=== PATIENT | female | born 1950 | race Caucasian/White ===

== ENCOUNTER 2021-07-18 18:01 | Emergency (ER) | payer MEDICARE, MEDICAID ==
[~2021-07-18] VITALS: Ht 160 cm; Wt 77.2 kg
--- NOTE | 2021-07-18 18:24 | PHYS DOC ---
General Adult EDM: Chief Complaint: HYPERTENSION HPI: HPI: Patient is a 70 year old female who presents with states she is just been feeling unwell with headache and dizziness when her blood pressure goes up. She states that she took her blood pressure today and it was in the 170s over 100s. She states that she has been very anxious and stressed lately with problems with one of her children. Patient is on lisinopril blood pressure medication. She states she has also been having left arm pain that goes from the shoulder and all the way down the arm since [place]. She denies fever, cough, abdominal pain, nausea, vomiting, diarrhea, numbness or tingling, focal weakness, vision change, syncope, head injury, chest pain, shortness of air, swelling of extremities. Denies any pain right now. Patient has a history of bipolar, anxiety, hypertension. She is fully vaccinated for COVID. (RAMÓN VARGSA CAR RENTAL MANAGER) Review of Systems: Review of Systems: Constitutional: Denies fever or chills. [] Eyes: Denies change in visual acuity. [] HENT: Denies nasal congestion or sore throat. [] Respiratory: Denies cough or shortness of breath. [] Cardiovascular: Denies chest pain or edema. + High blood pressure [] GI: Denies abdominal pain, nausea, vomiting, bloody stools or diarrhea. [] : Denies dysuria. [] Musculoskeletal: Denies back pain or joint pain. [] Integument: Denies rash. [] Neurologic: + headache, + dizziness, denies focal weakness or sensory changes. [] Endocrine: Denies polyuria or polydipsia. [] Lymphatic: Denies swollen glands. [] Psychiatric: Denies depression or anxiety. [] (RAMÓN VARGAS CAR RENTAL MANAGER) Heart Score: C/O Chest Pain: No HEART Score for Chest Pain: HEART Score for Chest Pain Response (Comments) Value History Slighlty/Non-Suspicious 0 ECG Nonspecific Repolarizatio 1 Age > 65 2 Risk Factors 1 or 2 Risk Factors 1 Troponin < Normal Limit 0 Total 4 Risk Factors: Risk Factors: DM, Current or recent (<one month) smoker, HTN, HLP, family history of CAD, obesity. Risk Scores: Score 0 - 3: 2.5% MACE over next 6 weeks - Discharge Home Score 4 - 6: 20.3% MACE over next 6 weeks - Admit for Clinical Observation Score 7 - 10: 72.7% MACE over next 6 weeks - Early Invasive Strategies (RAMÓN VARGAS APRN) Physical Exam: PE: Constitutional: Well developed, well nourished, no acute distress, non-toxic appearance. [] HENT: Normocephalic, atraumatic, bilateral external ears normal, oropharynx moist, no oral exudates, nose normal. [] Eyes: PERRLA, EOMI, conjunctiva normal, no discharge. [] Neck: Normal range of motion, no tenderness, supple, no stridor. [] Cardiovascular:Heart rate regular rhythm, no murmur [] Lungs & Thorax: Bilateral upper breath sounds clear and lower diminished to auscultation [] Abdomen: Bowel sounds normal, soft, no tenderness, no masses, no pulsatile masses. [] Skin: Warm, dry, no erythema, no rash. [] Back: No tenderness, no CVA tenderness. [] Extremities: No tenderness, no cyanosis, no clubbing, ROM intact, no edema. [] Neurologic: Alert and oriented X 3, normal motor function, normal sensory function, no focal deficits noted. [] Psychologic: Affect normal, judgement normal, mood normal. [] (RAMÓN VARGAS APRN) EKG: EK AND READ BY DR PEREZ SINUS RHYTHM WITH ATRIAL PREMATURE COMPLEXES, NO STEMI [address] PEREZ SINUS RHYTHM BUT NO STEMI (RAMÓN VARGAS APRN) Radiology/Procedures: Radiology/Procedures: [] Impression: [facility] [address] [place], [place] [id number] IMAGING REPORT Signed PATIENT: LILIAN ONEILLACCOUNT: [id number] : 1950 LOCATION: ER AGE: 70 SEX: M EXAM STATUS: REG ER ORD. PHYSICIAN: RAMÓN VARGAS APRN REASON: hypertension PROCEDURE: PORTABLE CHEST 1V Single view chest dated 07/18/2021 6:40 PM: COMPARISON: None Clinical Indication: Hypertension. Findings: Single upright portable exam of the chest was performed. Heart size and mediastinal contours are within normal limits. Lungs are clear. No consolidation or pleural effusion. No pneumothorax. IMPRESSION: No acute radiographic abnormality. Electronically signed by: Fran Mckeon MD (07/18/2021 6:40 PM) [facility] DICTATED and SIGNED BY: FRAN MCKEON MD DATE: 07/18/21 [id number] [facility] [address] [place] [address] IMAGING REPORT Signed PATIENT: LILIAN ONEILLACCOUNT: [id number] : 1950 LOCATION: ER AGE: 70 SEX: M EXAM STATUS: REG ER ORD. PHYSICIAN: RAMÓN VARGAS APRN REASON: headache, htn PROCEDURE: CT HEAD WO CONTRAST PQRS Compliance Statement: One or more of the following individualized dose reduction techniques were utilized for this examination: 1. Automated exposure control 2. Adjustment of the mA and/or kV according to patient size 3. Use of iterative reconstruction technique CT HEAD WITHOUT CONTRAST History: Reason: headache, htn : Comparison: None. Technique: Axial images are obtained of the head from the skull base through the vertex without IV contrast. Findings: No mass-effect, midline shift, extra-axial fluid collection, hemorrhage, or obvious acute infarction is identified. Basilar cisterns are patent. The ventricles and sulci are normal for patient age. There is mild periventricular white matter hypoattenuation. This is a nonspecific finding but is commonly due to chronic small vessel ischemic disease. Bone windows demonstrate no acute calvarial abnormality. The visualized paranasal sinuses are clear. The left mastoid air cells are partially opacified superiorly. IMPRESSION: No acute intracranial abnormality. Electronically signed by: Kushal Patel MD (07/18/2021 7:03 PM) [facility] DICTATED and SIGNED BY: KUSHAL PATEL MD DATE: 07/18/21 [id number] 0 (RAMÓN VARGAS APRN) Course & Med Decision Making: Course & Med Decision Making Pertinent Labs and Imaging studies reviewed. (See chart for details) See HPI. Alert and oriented x4. Ambulatory with a steady gait. Skin pink warm and dry. Lungs are clear in upper lobes and diminished in lower lobes. No extremity edema. PERRLA. Patient is very anxious. Initial blood pressure is 170 over 80s. 185: After patient has relaxed in the room her blood pressure is no 144/77. Chest x-ray shows no acute findings. 2030: Patient is signed over to Dr Perez. [] (RAMÓN VARGAS APRN) Course & Med Decision Making Assumed care of patient at checkout. At checkout second troponin was pending. Second troponin is normal. Patient's test results and vitals while in the ED were fully reviewed and discussed with the patient. Patient is stable and at this time does not need admission to the hospital. We have discussed strict return precautions and the importance of following up with their Primary Care Physician. Patient stated understanding and was given an opportunity to ask any questions. Patient is in agreement with plan. (CONNOR PEREZ MD) Dragon Disclaimer: Dragon Disclaimer: This electronic medical record was generated, in whole or in part, using a voice recognition dictation system. (RAMÓN VARGAS APRN) Departure Departure Impression: Primary Impression: Hypertension Qualified Codes: I10 - Essential (primary) hypertension Disposition: HOME / SELF CARE / HOMELESS Condition: STABLE Patient Instructions: Hypertension Additional Instructions: Call your primary care physician in the morning to get a follow-up appointment. Drink plenty of fluids. Rest as much as possible. Try to keep your stress level and anxiety down as much as possible. Continue taking all your medicat ions as they are prescribed. If you begin having chest pain, severe headache, severe shortness of breath or continuous dizziness return emergency room. RAMÓN VARGAS APRN Jul 18, 2021 18:24 CONNOR PEREZ MD Jul 19, 2021 00:39
--- NOTE | 2021-07-18 18:43 | RAD ---
Single view chest dated 07/18/2021 6:40 PM: COMPARISON: None Clinical Indication: Hypertension. Findings: Single upright portable exam of the chest was performed. Heart size and mediastinal contours are with in normal limits. Lungs are clear. No consolidation or pleural effusion. No pneumothorax. IMPRESSION: No acute radiographic abnormality. Electronically signed by: Fran Mckeon MD (07/18/2021 6:40 PM) [facility]
[2021-07-18 18:44] LABS: BASO % 1 % (0-3); EOS # 0.1 x10^3/uL (0.0-0.7); EOS % 2 % (0-3); HEMATOCRIT 36.5 % (39.0-53.0); HEMOGLOBIN 11.7 g/dL (13.0-17.5); LYMPH # 2.2 x10^3/uL (1.0-4.8); LYMPH % 36 % (24-48); MEAN CORPUSCULAR HEMOGLOBIN 30 pg (25-35); MEAN CORPUSCULAR HGB CONC 32 g/dL (31-37); MEAN CORPUSCULAR VOLUME 93 fL (79-100); MONO # 0.4 x10^3/uL (0.0-1.1); MONO % 7 % (0-9); NEUT # 3.3 x10^3/uL (1.8-7.7); NEUT % 55 % (31-73); PLATELET COUNT 298 x10^3/uL (140-400); RED BLOOD COUNT 3.91 x10^6/uL (4.30-5.70); RED CELL DISTRIBUTION WIDTH 14.9 % (11.5-14.5); WHITE BLOOD COUNT 6.1 x10^3/uL (4.0-11.0)
[2021-07-18 18:52] LABS: CALCIUM 8.5 mg/dL (8.5-10.1); CREATININE 0.9 mg/dL (0.7-1.3); GFR 83.9; POTASSIUM 3.8 mmol/L (3.5-5.1)
[2021-07-18 18:54] LABS: ALBUMIN 3.5 g/dL (3.4-5.0); ALBUMIN/GLOBULIN RATIO 0.9 (1.0-1.7); MAGNESIUM 1.8 mg/dL (1.8-2.4); TOTAL BILIRUBIN 0.3 mg/dL (0.2-1.0); TOTAL PROTEIN 7.6 g/dL (6.4-8.2)
--- NOTE | 2021-07-18 19:05 | RAD ---
PQRS Compliance Statement: One or more of the following individualized dose reduction techniques were utilized for this examinat ion: 1. Automated exposure control 2. Adjustment of the mA and/or kV according to patient size 3. Use of iterative reconstruction technique CT HEAD WITHOUT CONTRAST History: Reason: headache, htn : Comparison: None. Technique: Axial images are obtained of the head from the skull base through the vertex without IV co ntrast. Findings: No mass-effect, midline shift, extra-axial fluid collection, hemorrhage, or obvious acute infarction is identified. Basilar cisterns are patent. The ventricles and sulci are normal for patient age. There is mild periventricular white matter hypoa ttenuation. This is a nonspecific finding but is commonly due to chronic small vessel ischemic disea se. Bone windows demonstrate no acute calvarial abnormality. The visualized paranasal sinuses are clear. The left mastoid air cells are partially opacified superi angie. IMPRESSION: No acute intracranial abnormality. Electronically signed by: Kushal Patel MD (07/18/2021 7:03 PM) [facility]
[2021-07-18 20:08] LABS: BILIRUBIN,URINE NEGATIVE (NEG); CLARITY,URINE CLEAR; COLOR,URINE YELLOW; NITRITE,URINE NEGATIVE (NEG); PROTEIN,URINE NEGATIVE (NEG-TRACE)
[2021-07-18 20:10] LABS: BACTERIA,URINE 0 /HPF (0-FEW); RBC,URINE 0 /HPF (0-2)
[2021-07-18 20:11] LABS: AMORPHOUS SEDIMENT,UR PRESENT /HPF
[2021-07-18 22:50] VITALS: BP 156/72
--- NOTE | 2021-07-19 12:12 | EKG ---
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
--- NOTE | 2021-07-19 12:13 | EKG ---
[facility] [address] [place] [address] Test Date: 2021-07-18 Test Time: 18:29:24 Pat Name: LILIAN ONEILL Department: Room: Gender: F Telecommunicator Supervisor: : 1950 Requested By: RAMÓN VARGAS Order Number: [id number] Reading MD: Franki Burgos MD Measurements Intervals [place] Rate: 88 P: -42 [place]: 156 QRS: 7 QRSD: 92 T: 66 QT: 370 QTc: 451 Interpretive Statements SINUS RHYTHM PACS Electronically Signed On 07-22-2021 11:12:05 REGISTERED NURSING PROFESSOR by Franki Burgos MD
== END 2021-07-18 23:03 | disposition home or self-care (01) ==
LOC: EDSEX 18:01 → ER 18:01
DX: I10 Essential (primary) hypertension (principal); R51.9 Headache, unspecified; R42 Dizziness and giddiness; M79.602 Pain in left arm
CPT/HCPCS: 36415; 70450; 71045; 80053; 81001; 83690; 83735; 83880; 84484; 85025; 87086; 93005; 99285-25